=== PATIENT | female | born 1970 | race Caucasian/White ===

== ENCOUNTER 2024-12-07 14:02 | Emergency (ER) | payer MEDICAID, SELFPAY ==
[2024-12-07] MEDS ORDERED: Amoxicillin/Potassium Clav 875 MG TAB ONE (15:13)
[2024-12-07] MEDS ORDERED: Dexamethasone 4 MG TAB ONE (15:13)
[2024-12-07] MEDS ORDERED: Acetaminophen 500 MG TAB ONE (15:18)
== END 2024-12-07 15:34 | disposition home or self-care (01) ==
LOC: CSHERS 14:02
DX: K04.01 Reversible pulpitis (principal); K08.89 Other specified disorders of teeth and supporting structures; I10 Essential (primary) hypertension; F17.210 Nicotine dependence, cigarettes, uncomplicated
CPT/HCPCS: 99282; J8540